=== PATIENT | female | born 2000 | race African-American/Black ===

== ENCOUNTER 2023-03-25 15:59 | Emergency (ER) | payer MEDICAID, OTHER ==
[~2023-03-25] VITALS: Ht 152.4 cm; Wt 63.0 kg
[2023-03-25 16:15] VITALS: BP 126/87; PULSE 84; RESP 20; TEMP 98; O2SAT 100
[2023-03-25] MEDS ORDERED: NAPR-681 MT (18:29)
[2023-03-25] MEDS ORDERED: LIDO700A15 TP (18:30)
== END 2023-03-25 19:00 | disposition home or self-care (01) ==
LOC: ER 15:59
DX: M20.012 Mallet finger of left finger(s) (principal); Y04.0XXA Assault by unarmed brawl or fight, initial encounter; Y93.89 Activity, other specified; Y92.89 Other specified places as the place of occurrence of the external cause; Y99.8 Other external cause status
CPT/HCPCS: 29130; 71045; 73130; 99284